=== PATIENT | female | born 1990 | race Caucasian/White ===

== ENCOUNTER → 2019-08-22 | Outpatient (CLI) | payer BC ==
[~2019-08-22] MED LIST: BELPTAB PO; FLUT.05NI; IBUP800; ONDA8ODT MM; PANT40; PRENATAL TABLE1 EAC2 PO; Vitamin D2000 UNIT PO
== END | disposition home or self-care (01) ==
LOC: LAB 15:40 → LAB SHORT 15:40
DX: Z34.93 Encounter for supervision of normal pregnancy, unspecified, third trimester (principal)
CPT/HCPCS: 87081; 87653

== ENCOUNTER 2019-09-12 06:01 | Inpatient (IN) | payer BC ==
[~2019-09-12] VITALS: Ht 172.7 cm; Wt 98.2 kg
[~2019-09-12 06:01] MED LIST changes: -IBUP800; -PRENATAL TABLE1 EAC2 PO; -Vitamin D2000 UNIT PO
[2019-09-12] MEDS ORDERED: PRENATAL TABLE1 EAC2 PO (06:13)
[2019-09-12] MEDS ORDERED: Vitamin D2000 UNIT PO (06:13)
[2019-09-12 06:39] LABS: BASOPHILS ABSOLUTE AUTO 0.03 K/mm3 (0.00-0.23); BASOPHILS PERCENT AUTO 0 % (0-2); EOSINOPHILS ABSOLUTE AUTO 0.04 K/mm3 (0.00-0.68); EOSINOPHILS PERCENT AUTO 0 % (0-6); Hematocrit 37.9 % (33.0-51.0); Hemoglobin 12.1 g/dL (11.5-16.0); IMMATURE GRAN ABSOLUTE AUTO 0.11 K/mm3 (0.00-0.10); IMMATURE GRAN PERCENT AUTO 1 % (0-1); LYMPHOCYTES ABSOLUTE AUTO 1.82 K/mm3 (0.84-5.20); LYMPHOCYTES PERCENT AUTO 19 % (21-46); MONOCYTES ABSOLUTE AUTO 0.37 K/mm3 (0.16-1.47); MONOCYTES PERCENT AUTO 4 % (4-13); Mean Corpuscular HGB 29.3 pg (26.0-34.0); Mean Corpuscular HGB Conc 31.9 g/dL (31.5-36.5); Mean Corpuscular Volume 92 fL (80-100); Mean Platelet Volume 10.9 fL (9.1-12.4); NEUTROPHILS ABSOLUTE AUTO 7.22 K/mm3 (1.96-9.15); NEUTROPHILS PERCENT AUTO 75 % (41-73); Platelet Count 195 K/mm3 (150-400); RDW Coefficient Variation 14.4 % (11.7-14.2); RDW Standard Deviation 47.9 fL (35.1-46.3); Red Blood Cell Count 4.13 M/mm3 (3.80-5.20); White Blood Cell Count 9.59 K/mm3 (4.00-11.30)
[2019-09-13 05:53] LABS: Hematocrit 31.8 % (33.0-51.0); Hemoglobin 10.2 g/dL (11.5-16.0); Mean Corpuscular HGB 29.9 pg (26.0-34.0); Mean Corpuscular HGB Conc 32.1 g/dL (31.5-36.5); Mean Corpuscular Volume 93 fL (80-100); Mean Platelet Volume 11.1 fL (9.1-12.4); Platelet Count 159 K/mm3 (150-400); RDW Coefficient Variation 14.5 % (11.7-14.2); RDW Standard Deviation 48.7 fL (35.1-46.3); Red Blood Cell Count 3.41 M/mm3 (3.80-5.20); White Blood Cell Count 11.22 K/mm3 (4.00-11.30)
--- NOTE | 2019-09-13 14:37 | NUR ---
CONSULT. MOM IS EXPERIENCED WITH BF. IS HAVING SOME PROBLEMS WITH GETTING AND KEEPING A DEEPER LATCH AND NIPPLES ARE GETTING QUITE SORE. INSTRUCT IN POSITIONING TO HELP ACHIEVE A DEEPER ASYMETRIC LATCH AND THEN FURTHER WIDEN LATCH UNTIL COMFORTABLE. HELP BABY COORDINATE SUCK ON A FINGER BEFORE OFFERING BREAST IF SHE STARTS BITING MORE, OFFER HER DROPS OF COLOSTRUM TO HELP WITH GETTING WIDER ROOTING MOUTH PRIOR TO LATCH. INSTRUCT IN CHANGES TO EXPECT DURING THE FIRST WEEK WITH BABY AND WITH FEEDINGS AND REFERRED TO BF BOOKLET FOR INFORMATION. QUESTIONS ANSWERED. BABY IS CURRENTLY ASLEEP IN [place].
[2019-09-13] MEDS ORDERED: IBUP800 (15:01)
== END 2019-09-13 17:15 | disposition home or self-care (01) | DRG 807 ==
LOC: OBS 06:01 → BC 06:03 → OBS 06:15 → BC 06:16
PROVIDERS: ADMIT Obstetrics & Gynecology
PROC: 10E0XZZ Delivery of Products of Conception, External Approach (ICD-10-PCS; principal; 2019-09-12)
PROC: 0HQ9XZZ Repair Perineum Skin, External Approach (ICD-10-PCS; 2019-09-12)
PROC: 10907ZC Drainage of Amniotic Fluid, Therapeutic from Products of Conception, Via Natural or Artificial Opening (ICD-10-PCS; 2019-09-12)
PROC: 3E033VJ Introduction of Other Hormone into Peripheral Vein, Percutaneous Approach (ICD-10-PCS; 2019-09-12)
PROC: 3E0R3BZ Introduction of Anesthetic Agent into Spinal Canal, Percutaneous Approach (ICD-10-PCS; 2019-09-12)
DX: O70.0 First degree perineal laceration during delivery (principal); Z37.0 Single live birth; Z3A.39 39 weeks gestation of pregnancy
CPT/HCPCS: 36415; 51702; 85025; 85027; 86900; 86901; J1885; J2001; J2210; J2590; J3010; J7030; J7120

== ENCOUNTER → 2020-09-21 | Outpatient (CLI) | payer BC ==
[~2020-09-21] MED LIST changes: +IBUP800; +PRENATAL TABLE1 EAC2 PO; +Vitamin D2000 UNIT PO
== END | disposition home or self-care (01) ==
LOC: LAB SHORT 15:57
DX: R30.0 Dysuria (principal)
CPT/HCPCS: 87086

== ENCOUNTER → 2020-09-24 | Outpatient (CLI) | payer BC | END | disposition home or self-care (01) | LOC: LAB SHORT 10:44 | DX: R30.0 Dysuria (principal) | CPT/HCPCS: 87086 ==